=== PATIENT | female | born 1985 | race Hispanic/Latino ===

== ENCOUNTER 2018-11-13 01:06 | Emergency (ER) | payer BC | END 2018-11-13 01:54 | disposition home or self-care (01) | LOC: EDH 01:06 | DX: J06.9 Acute upper respiratory infection, unspecified (principal); Z88.0 Allergy status to penicillin | CPT/HCPCS: 99281 ==

== ENCOUNTER 2021-05-08 23:29 | Emergency (ER) | payer BC, OTHER ==
[~2021-05-08] VITALS: Ht 167.6 cm; Wt 143.8 kg
[2021-05-08 23:31] VITALS: BP 144/91
[2021-05-09] MEDS ORDERED: ACYCLOVIR 800 MG TABLET PO ONE (00:30)
[2021-05-09] MEDS ORDERED: PREDNISONE 20 MG TABLET PO ONE (00:30)
[2021-05-09] MEDS ORDERED: VALA100031 PO (00:36)
[2021-05-09] MEDS ORDERED: PRED10TA3 PO (00:38)
[2021-05-09] MEDS ORDERED: ACYCLOVIR 200 MG CAPSULE ONE (00:45)
[2021-05-09] MEDS ORDERED: PREDNISONE 20 MG TABLET ONE (00:45)
== END 2021-05-09 01:02 | disposition home or self-care (01) ==
LOC: EDH 23:29
DX: G51.0 Bell's palsy (principal); E03.9 Hypothyroidism, unspecified; E11.9 Type 2 diabetes mellitus without complications; Z88.0 Allergy status to penicillin; Z79.52 Long term (current) use of systemic steroids

== ENCOUNTER 2022-05-14 08:18 | Emergency (ER) | payer OTHER ==
[~2022-05-14] VITALS: Ht 167.6 cm; Wt 133.8 kg
[~2022-05-14 08:18] MED LIST: PRED10TA3 PO; VALA100031 PO
[2022-05-14 08:52] VITALS: BP 132/93
[2022-05-14 09:01] LABS: BASOPHILS % (AUTO) 0.3 % (0.0-5.0); EOSINOPHILS % (AUTO) 1.5 % (0.0-8.0); HEMATOCRIT 38.5 % (36-48); LYMPHOCYTES % (AUTO) 26.4 % (21.0-51.0); MEAN CORPUSCULAR HEMOGLOBIN 28.7 pg (27.0-33.0); MEAN CORPUSCULAR HGB CONC 32.7 g/dL (32.0-36.0); MEAN CORPUSCULAR VOLUME 87.7 fL (79-99); MONOCYTES % (AUTO) 7.4 % (3.0-13.0); NEUTROPHILS % (AUTO) 64.1 % (40.0-77.0); PLATELET COUNT (AUTO) 297 K/uL (130-400); RED BLOOD CELL COUNT(AUTO) 4.39 MIL/uL (4.00-5.50); RED CELL DISTRIBUTION WIDTH 13.9 % (11.0-15.5); WHITE BLOOD COUNT (AUTO) 6.8 K/uL (4.8-10.8)
[2022-05-14 09:25] LABS: CREATININE 0.8 mg/dL (0.5-1.5); POTASSIUM 4.1 mmol/L (3.5-5.1)
[2022-05-14 09:30] LABS: APPEARANCE,URINE CLOUDY (CLEAR); BILIRUBIN,URINE NEGATIVE (NEGATIVE); COLOR,URINE YELLOW (YELLOW); GLUCOSE, URINE (UA) NEGATIVE (NEGATIVE); KETONES,URINE 20 mg/dL (NEGATIVE); LEUKOCYTE ESTERASE ,URINE 25 Leu/uL (NEGATIVE); NITRATE,URINE 2+ (NEGATIVE); OCCULT BLOOD,URINE NEGATIVE (NEGATIVE); PROTEIN,URINE NEGATIVE (NEGATIVE); UROBILINOGEN,URINE 0.2 mg/dL (0.2-1.0)
[2022-05-14 09:30] LABS: ALBUMIN 3.4 g/dL (3.5-5.0); TOTAL PROTEIN, SERUM 7.5 g/dL (6.0-8.3)
[2022-05-14 09:47] LABS: BACTERIA,URINE FEW /HPF (None Seen); MUCUS,URINE RARE LPF (None Seen); SQUAMOUS EPITHELIAL CELL,UR MANY /HPF (0-2)
[2022-05-14 10:20] LABS: HCG,QUALITATIVE URINE NEGATIVE (NEGATIVE)
[2022-05-14] MEDS ORDERED: ONDANSETRON ODT 4MG TAB SL ONE (10:30)
[2022-05-14] MEDS ORDERED: ONDA4TAB10 PO (11:43)
== END 2022-05-14 12:40 | disposition home or self-care (01) ==
LOC: EDH 08:18
DX: A08.4 Viral intestinal infection, unspecified (principal); E11.9 Type 2 diabetes mellitus without complications; E03.9 Hypothyroidism, unspecified; Z20.822 Contact with and (suspected) exposure to COVID-19; Z88.0 Allergy status to penicillin; Z79.899 Other long term (current) drug therapy; Z98.890 Other specified postprocedural states
CPT/HCPCS: 99283; 87635; 80053; 83690; 85025; 87077; 87088; 87186; 81001; 81025; 36415; C9803

== ENCOUNTER 2025-01-18 21:55 | Emergency (ER) | payer BC, OTHER ==
[~2025-01-18] VITALS: Ht 167.6 cm; Wt 113.4 kg
[~2025-01-18 21:55] MED LIST changes: +ONDA-243 PO
--- NOTE | 2025-01-18 21:57 | NUR ---
UA CUP PROVIDED
[2025-01-18 22:20] LABS: IMMATURE GRANULOCYTE ABSOLUTE 0.01 K/uL (0-1); NUCLEATED RED BLOOD CELLS 0.0 % (0.0-0.19); PLATELET COUNT (AUTO) 292 K/uL (130-400); RED BLOOD CELL COUNT(AUTO) 4.32 MIL/uL (4.00-5.50); RED CELL DISTRIBUTION WIDTH 13.9 % (11.0-15.5); WHITE BLOOD COUNT (AUTO) 5.2 K/uL (4.8-10.8)
[2025-01-18 22:26] LABS: APPEARANCE,URINE CLEAR (CLEAR); GLUCOSE, URINE (UA) NEGATIVE (NEGATIVE); LEUKOCYTE ESTERASE ,URINE NEGATIVE Leu/uL (NEGATIVE); NITRATE,URINE NEGATIVE (NEGATIVE); OCCULT BLOOD,URINE NEGATIVE (NEGATIVE)
[2025-01-18 22:27] LABS: ADD UA MICROSCOPIC YES
[2025-01-18 22:29] LABS: CREATININE 0.7 mg/dL (0.5-1.0); GLOMERULAR FILTR. RATE CALC 113.0 mL/min (>90); GLUCOSE,RANDOM 99.0 mg/dL (70-105); SODIUM SERUM 139.0 mmol/L (136-145); UREA NITROGEN, BLOOD 10.0 mg/dL (7-18)
[2025-01-18 22:31] LABS: HCG,QUALITATIVE URINE NEGATIVE (NEGATIVE)
[2025-01-18 22:33] LABS: ASPARTATE AMINOTRANSFERASE 16.0 U/L (10-37); TOTAL PROTEIN, SERUM 7.8 g/dL (6.0-8.3)
[2025-01-18 22:39] LABS: SQUAMOUS EPITHELIAL CELL,UR FEW /HPF (0-2)
--- NOTE | 2025-01-18 22:47 | ERN ---
ED Note History of Present Illness Stated Complaint: ABD PAIN Chief Complaint: Abdominal Pain Time Seen by MD: 22:05 Time Seen by Midlevel: 22:05 Dictation: The patient is a 39-year-old female with a history of hyperlipidemia, Mounjaro for weight loss who presents to the emergency department with epigastric abdominal pain onset 3:00 p.m. Patient reports some nausea but no vomiting. Patient denies any fevers, constipation or diarrhea. Allergies: Coded Allergies: Penicillins (Unverified Allergy, Unknown, 11/13/18) Home Meds Active Scripts Pantoprazole Sodium (Pantoprazole Sodium) 20 Mg Tablet.dr, 1 TAB PO DAILY for 30 Days, #30 TAB 0 Refills Prov:BAKARI STOREY AUDIO PRODUCTION MANAGER 01/18/25 Ondansetron (Ondansetron Odt) 4 Mg Tab.rapdis, 4 MG PO TID PRN for NAUSEA, #15 TAB 0 Refills Prov:JOSEPH PABLO MD 05/14/22 Prednisone (Prednisone) 10 Mg Tablet, 10 MG PO AD, #25 TAB 0 Refills Day 1-- 6 tbs Day 2-- 5 tbs Day 3-- 4 tbs Day 4-- 3 tbs Day 5-- 2 tbs Day 6-- 2 tbs Day 7-- 1 tb Day 8 --1 tb Day 9-- 1 tb Prov:CODY NARVAEZ MD 05/09/21 Valacyclovir HCl (Valacyclovir) 1,000 Mg Tablet, 1000 MG PO TID for 7 Days, #21 TAB 0 Refills Prov:CODY NARVAEZ MD 05/09/21 Past Medical History Past Medical History: Diabetes-Type II, High Cholesterol, Hypothyroid Surgical History: Other, BTL, Surgical History Other: BRACHIOPLASTY Social History: Lives with family LMP: Dec 31, 2024 RN Note Reviewed/Agreed w/PFSH: Yes Review of System Dictation Constitutional: Negative for fever,chills, and weight loss Eyes: Negative for injury, pain,redness, and discharge ENT: Negative for injury,pain or swelling Cardiovascular: Negative for chest pain, palpitations, and edema Respiratory: Negative for shortness of breath, cough, and wheezing, Abdomen/GI: Negative for , vomiting, diarrhea, and constipation positive for abdominal pain, nausea Back: Negative for injury and pain : Negative for injury, bleeding and discharge MS/Extremity: Negative for injury and deformity Skin: Negative for rash, and discoloration Neuro: Negative for headache, weakness, numbness, tingling, and seizure Psych: Negative for suicide ideation, homicidal ideation, and hallucinations Initial Vital Sign VS Vital Signs Date Time Temp Pulse Resp B/P (MAP) Pulse Ox O2 Delivery O2 Flow Rate FiO2 01/18/25 21:57 98.2 89 20 129/103 99 Room Air 01/18/25 22:18 0 21 Physical Exam Dictation Vital Signs reviewed General Appearance: Alert, oriented x 3, no acute distress, well developed, nourished. Head and Face: non-traumatic. Eyes: PERRL, pink conjunctivas, eyelid no trauma, anterior chamber with arcus senilis. Ears: Pinnas intact and no signs of trauma or erythema ear canals clear and no discharge TM no erythema Nose: No discharge, no bleeding. Oropharynx: Mouth normal, tongue pink. pharynx clear,no erythema, tonsils no exudates, no abscesses noted, mucous membrane moist Neck: Supple, non-tender, no thyromegaly, no masses, no JVD, no bruits Breast:Deferred Chest:No tenderness, no crepitus, no paradoxical movement, no retractions Lungs:Clear, well-ventilated, symmetric, no rales, no wheezing, no rhonchi, no stridor, good breath sounds bilaterally Heart: Regular rate, regular rhythm, no murmur, no gallops Vascular: no peripheral edema, Abdomen: Soft, positive bowel sounds, nondistended, no guarding, nontender, no rebound, no masses no hepatomegaly, no splenomegaly, no Preston's sign, no hernias. Rectal: Deferred Genital: Deferred Neurological: Normal speech, motor function intact, sensory function intact Musculoskeletal: Neck nontender, full range of motion, back nontender, full range of motion, Extremities: nontender, full range of motion Skin: Color pink, dry, no turgor, no rash, no lacerations, no abrasions, no contusions. Lymphatic: Deferred Results (Laboratory/Radiology) Laboratory/Radiology Laboratory Tests Test 01/18/25 21:50 01/18/25 22:12 Urine Color YELLOW (YELLOW) Urine Appearance CLEAR (CLEAR) Urine pH 7.0 (5.0-8.0) Urine Specific [place] 1.023 (1.001-1.031) Urine Protein 30 mg/dL (NEGATIVE) H Urine Glucose (UA) NEGATIVE mg/dL (NEGATIVE) Urine Ketones 5 mg/dL (NEGATIVE) H Urine Occult Blood NEGATIVE (NEGATIVE) Urine Nitrate NEGATIVE (NEGATIVE) Urine Bilirubin NEGATIVE mg/dL (NEGATIVE) Urine Urobilinogen 0.2 mg/dL (0.2-1.0) Urine Leukocyte Esterase NEGATIVE Jaimee/uL Urine RBC 0-1 /HPF (0-1) Urine WBC 2-5 /HPF (0-1) H Urine Squamous Epithelial Cells FEW /HPF (0-2) Urine Bacteria None /HPF (None Seen) Urine HCG, Qualitative NEGATIVE (NEGATIVE) White Blood Count 5.2 K/uL (4.8-10.8) Red Blood Count 4.32 MIL/uL (4.00-5.50) Hemoglobin 12.9 g/dL (12.0-16.0) Hematocrit 38.0 % (36-48) Mean Corpuscular Volume 88.0 fL (79-99) Mean Corpuscular Hemoglobin 29.9 pg (27.0-33.0) Mean Corpuscular Hemoglobin Concent 33.9 g/dL (32.0-36.0) Red Cell Distribution Width 13.9 % (11.0-15.5) Platelet Count 292 K/uL (130-400) Mean Platelet Volume 10.5 fL (7.5-10.5) Immature Granulocyte % (Auto) 0.2 % (0-1) Neutrophils (%) (Auto) 56.7 % (40.0-77.0) Lymphocytes (%) (Auto) 33.5 % (21.0-51.0) Monocytes (%) (Auto) 8.2 % (3.0-13.0) Eosinophils (%) (Auto) 0.8 % (0.0-8.0) Basophils (%) (Auto) 0.6 % (0.0-5.0) Neutrophils # (Auto) 3.0 K/uL (1.8-7.7) Lymphocytes # (Auto) 1.8 K/uL (1.0-4.8) Monocytes # (Auto) 0.4 K/uL (0.1-1.0) Eosinophils # (Auto) 0.04 K/uL (0.00-0.70) Basophils # (Auto) 0.03 K/uL (0.00-0.20) Absolute Immature Granulocyte (auto 0.01 K/uL (0-1) Nucleated Red Blood Cells 0.0 % (0.0-0.19) Sodium Level 139 mmol/L (136-145) Potassium Level 3.8 mmol/L (3.5-5.1) Chloride Level 105 mmol/L (101-111) Carbon Dioxide Level 26 mmol/L (21-32) Blood Urea Nitrogen 10 mg/dL (7-18) Creatinine 0.7 mg/dL (0.5-1.0) Glomerular Filtration Rate Calc 113 mL/min (>90) Random Glucose 99 mg/dL (70-105) Total Calcium 8.9 mg/dL (8.5-10.1) Total Bilirubin 0.4 mg/dL (0.2-1.0) Direct Bilirubin 0.1 mg/dL (0.0-0.3) Aspartate Amino Transf (AST/SGOT) 16 U/L (10-37) Alanine Aminotransferase (ALT/SGPT) 19 U/L (12-78) Alkaline Phosphatase 69 U/L (50-136) Total Protein 7.8 g/dL (6.0-8.3) Albumin 3.9 g/dL (3.5-5.0) Lipase 31 U/L (16-77) Labs Reviewed?: Yes ED Course ED Course Orders Procedure Category Date Status Time Cbc With Differential LAB 01/18/25 Complete 22:11 ,Urine Test LAB 01/18/25 Complete 22:11 Urinalysis Profile LAB 01/18/25 Complete 22:11 0.9%Nacl 1000ml (Ns PHA 01/18/25 Complete 1000ml) 22:30 Ondansetron 4mg Inj PHA 01/18/25 Complete (Zofran 4mg Inj) 22:30 Pantoprazole 40mg Inj PHA 01/18/25 Complete (Protonix 40mg Inj 22:30 Lipase LAB 01/18/25 Complete 22:11 Basic Metabolic Panel LAB 01/18/25 Complete 22:11 Hepatic Function Panel LAB 01/18/25 Complete 22:11 Current Medications Medications (Trade) Dose Ordered Sig/Nba Route PRN Reason Start Time Stop Time Status Last Admin Dose Admin Ondansetron HCl (zoFRAN 4MG INJ) 4 mg ONCE ONCE IVP 01/18/25 22:30 01/18/25 22:31 DC Pantoprazole Sodium (PROTonix 40MG INJ) 40 mg ONCE ONCE IVP 01/18/25 22:30 01/18/25 22:31 DC Sodium Chloride 1,000 ml @ 0 mls/hr ONCE ONCE IV 01/18/25 22:30 01/18/25 22:31 DC Vital Signs Date Time Temp Pulse Resp B/P (MAP) Pulse Ox O2 Delivery O2 Flow Rate FiO2 01/18/25 22:18 98.2 74 16 124/78 100 Room Air* 0 21 01/18/25 21:57 98.2 89 20 129/103 99 Room Air Medical Decision Making MDM The patient is a 39-year-old female with a history of hyperlipidemia, Mounjaro for weight loss who presents to the emergency department with epigastric abdominal pain onset 3:00 p.m. Patient reports some nausea but no vomiting. Patient denies any fevers, constipation or diarrhea. CBC showed no leukocytosis, no anemia, chemistry showed no electrolyte imbalance, normal renal function, negative lipase, normal liver enzymes, urinalysis unremarkable. Patient's symptoms probably related to gastritis. Patient is on Mounjaro. Patient instructed to eat smaller meals and avoid any foods that exacerbate her symptoms. On reassessment patient is no longer having any pain. Patient with a soft nontender abdomen. Patient with stable vital signs. In no acute distress. Differential diagnosis: Gastritis, pancreatitis, electrolyte imbalance, dehydration Need for hospitalization: Patient does not meet criteria for hospitalization. There are no social concerns with this patient. DX & DISP Disposition: Discharge Departure Impression: Primary Impression: Gastritis Condition: Stable Scripts Pantoprazole Sodium (Pantoprazole Sodium) 20 Mg Tablet. 1 TAB PO DAILY for 30 Days, #30 TAB 0 Refills Prov: STOREYBAKARI BELTRAN AUDIO PRODUCTION MANAGER 01/18/25 Additional Instructions: Your labs were unremarkable. Your symptoms are probably due to gastritis. Please avoid any foods that exacerbate your symptoms. Please avoid laying down right after eating. If anything worsens please return to ER pain FOLLOW-UP WITH PRIMARY CARE PROVIDER IN 1 TO 2 DAYS. TAKE MEDICATIONS DIRECTED HERE IN THE EMERGENCY ROOM. OKAY TO CONTINUE HOME MEDICATIONS UNLESS OTHERWISE DISCUSSED DURING YOUR VISIT IN THE EMERGENCY ROOM TODAY. RETURN TO YOUR NEAREST EMERGENCY ROOM IF SYMPTOMS WORSEN OR IF THERE IS NO IMPROVEMENT. CALL 911 IF YOU NEED IMMEDIATE ASSISTANCE. TAKE TYLENOL [id number] NEEDED AND IF NO CONTRAINDICATIONS ARE PRESENT. INCREASE ORAL HYDRATION. A WOUND CULTURE OR URINE CULTURE WAS ORDERED HERE IN THE EMERGENCY ROOM DEPARTMENT PLEASE FOLLOW-UP WITH PRIMARY CARE PROVIDER AND ADVISE THEM TO GET REPEAT PORTS FROM OUR FACILITY. IF YOU HAD ANY LUIS ALFREDO WRAP/SPLINTS THAT WERE APPLIED HERE, PLEASE DO NOT REMOVE THEM UNTIL YOU SEE YOUR PRIMARY CARE OR SPECIALTY. Referrals: SELF,REFERRAL (PCP) Time of Disposition: 23:35 I have reviewed the case, and I agree with, Diagnosis and Plan BAKARI STOREY AUDIO PRODUCTION MANAGER Jan 18, 2025 22:47
[2025-01-18] MEDS ORDERED: PANT20TA18 PO (23:36)
[2025-01-18] MEDS: 0.9%NACL 1000ML 1,000 ML IV ONE (23:59)
[2025-01-19] VITALS: BP 122/87; PULSE 86; RESP 18; TEMP 98.6; O2SAT 99
== END 2025-01-19 00:04 | disposition home or self-care (01) ==
LOC: EDH 21:55
DX: K29.70 Gastritis, unspecified, without bleeding (principal); E03.9 Hypothyroidism, unspecified; E11.9 Type 2 diabetes mellitus without complications; E78.00 Pure hypercholesterolemia, unspecified; Z79.624 Long term (current) use of inhibitors of nucleotide synthesis; Z79.899 Other long term (current) drug therapy; Z88.0 Allergy status to penicillin; Z98.51 Tubal ligation status; Z98.890 Other specified postprocedural states
CPT/HCPCS: 99284; 96374; 96375; 80076; 80048; 83690; 85025; 81001; 81025; 36415; J2405; J2470